=== PATIENT | female | born 1935 | race Caucasian/White ===

== ENCOUNTER 2020-07-31 09:04 | Day surgery (SDC) | payer MEDICARE, BC ==
[~2020-07-31] VITALS: Ht 160 cm; Wt 60.8 kg
[~2020-07-31 09:04] MED LIST: ATOR10 PO; CALCAVITDA PO; HYDR1TAB94 PO; INSUASPI; INSUASPI SC; INSULANPEN; INSULANPEN SC; LEVSOD100 PO; Neurontin300 MG PO; OMEPRAZOLE MAGN20 MG PO
--- NOTE | 2020-07-31 11:12 | NUR ---
Ambulatory in Day Surgery History, Chart, Medications and Allergies reviewed before start of procedure.Patient confirms NPO status and agrees with scheduled surgery. Patient states colon prep results clear.Lungs clear T/O to Auscultation.
--- NOTE | 2020-07-31 11:26 | NUR ---
07/31/20 1126 Rod Bahena History, Chart, Medications and Allergies reviewed before start of procedure. MONITOR INTACT WITH CONTINUOUS PULSE OXIMETRY AND INTERMITTENT BP. 3-LEAD EKG REVIEWED WITH PHYSICIAN PRIOR TO START OF PROCEDURE. O2 VIA N/C INTACT THROUGHOUT SEDATION/PROCEDURE. HURRICAINE SPRAY TO OROPHARYX. Bite Block Placed. PATIENT DETERMINED TO BE ASA APPROPRIATE FOR PROPOFOL SEDATION PRIOR TO START OF PROCEDURE BY DR. PADILLA.
--- NOTE | 2020-07-31 12:53 | NUR ---
Patient up to Ambulate independently. Gait steady. Discharge instructions reviewed with patient. Patient verbalizes understanding. Copy given to patient to take home. Discharged via wheelchair to private car for ride home WITH .
== END 2020-07-31 23:08 | disposition home or self-care (01) ==
LOC: ORSCMMR 09:04 → ORD 10:00 → ORSCMMR 10:00
PROVIDERS: Internal Medicine Gastroenterology
PROC: 0DB98ZX Excision of Duodenum, Via Natural or Artificial Opening Endoscopic, Diagnostic (ICD-10-PCS; principal; 2020-07-31 10:00)
PROC: 0DBL8ZX Excision of Transverse Colon, Via Natural or Artificial Opening Endoscopic, Diagnostic (ICD-10-PCS; principal; 2020-07-31 10:00)
PROC: 0DB68ZX Excision of Stomach, Via Natural or Artificial Opening Endoscopic, Diagnostic (ICD-10-PCS; principal; 2020-07-31 10:00)
DX: D46.4 Refractory anemia, unspecified (principal); D12.3 Benign neoplasm of transverse colon; K64.8 Other hemorrhoids; K57.30 Diverticulosis of large intestine without perforation or abscess without bleeding; K44.9 Diaphragmatic hernia without obstruction or gangrene; E10.21 Type 1 diabetes mellitus with diabetic nephropathy; E03.9 Hypothyroidism, unspecified; E78.00 Pure hypercholesterolemia, unspecified; I10 Essential (primary) hypertension; Z79.4 Long term (current) use of insulin; Z79.899 Other long term (current) drug therapy
CPT/HCPCS: 82947; 88305; 88342; A9270; J2704; J7120

== ENCOUNTER 2021-01-19 14:33 | Emergency (ER) | payer MEDICARE, BC ==
[~2021-01-19] VITALS: Ht 170.2 cm; Wt 59.0 kg
[2021-01-19] MEDS ORDERED: AMLODIPINE BESYL5 MG PO (15:19)
[2021-01-19] MEDS ORDERED: [UNRECOGNIZED DRUG - OTHER] (15:20)
[2021-01-19] MEDS ORDERED: LISINOPRIL 40 MG (15:21)
[2021-01-19] MEDS ORDERED: METFORMIN HCL500 M3 PO (15:22)
[2021-01-19 15:34] LABS: BASOPHILS PERCENT AUTO 1 % (0-2); EOSINOPHILS PERCENT AUTO 1 % (0-6); Hematocrit 38.5 % (33.0-51.0); Hemoglobin 11.8 g/dL (11.5-16.0); IMMATURE GRAN ABSOLUTE AUTO 0.02 K/mm3 (0.00-0.10); IMMATURE GRAN PERCENT AUTO 0 % (0-1); LYMPHOCYTES ABSOLUTE AUTO 1.34 K/mm3 (0.84-5.20); LYMPHOCYTES PERCENT AUTO 15 % (21-46); MONOCYTES ABSOLUTE AUTO 0.65 K/mm3 (0.16-1.47); MONOCYTES PERCENT AUTO 7 % (4-13); Mean Corpuscular HGB 25.4 pg (26.0-34.0); Mean Corpuscular HGB Conc 30.6 g/dL (31.5-36.5); Mean Corpuscular Volume 83 fL (80-100); Mean Platelet Volume 10.5 fL (9.1-12.4); NEUTROPHILS ABSOLUTE AUTO 6.57 K/mm3 (1.96-9.15); NEUTROPHILS PERCENT AUTO 75 % (41-73); Platelet Count 255 K/mm3 (150-400); RDW Coefficient Variation 17.2 % (11.7-14.2); RDW Standard Deviation 51.5 fL (35.1-46.3); Red Blood Cell Count 4.65 M/mm3 (3.80-5.20); White Blood Cell Count 8.78 K/mm3 (4.00-11.30)
[2021-01-19 16:04] LABS: Albumin, Blood 3.2 g/dL (3.4-5.0); Albumin/Globulin Ratio 0.8 (0.8-1.8); Bilirubin, Direct 0.1 mg/dL (0.0-0.3); Bilirubin, Indirect 0.4 mg/dL (0.1-0.7); Bilirubin, Total 0.5 mg/dL (0.1-1.0); Bun/Creatinine Ratio 36.4 (12.0-20.0); Calcium, Blood 9.3 mg/dL (8.5-10.1); Creatinine, Blood 1.21 mg/dL (0.40-1.00); Globulin, Blood 4.1 g/dL (2.2-4.0); Magnesium, Blood 2.3 mg/dL (1.6-2.4); Potassium, Blood 4.5 mmol/L (3.5-5.5); Total Protein, Blood 7.3 g/dL (6.4-8.2)
[2021-01-19 17:03] LABS: Free Thyroxine 1.42 ng/dL (0.70-1.60)
[2021-01-19 17:05] LABS: Triiodothyronine, Free 2.27 pg/mL (2.18-3.98)
[2021-01-19] MEDS ORDERED: ONDA4ODT MM (17:19)
== END 2021-01-19 18:00 | disposition home or self-care (01) ==
LOC: ER 14:33
PROVIDERS: Physician Assistant; Student in an Organized Health Care Education/Training Program
DX: R11.2 Nausea with vomiting, unspecified (principal); E86.0 Dehydration; T50.B95A Adverse effect of other viral vaccines, initial encounter; Z79.899 Other long term (current) drug therapy; Z79.84 Long term (current) use of oral hypoglycemic drugs; Z79.4 Long term (current) use of insulin; E11.9 Type 2 diabetes mellitus without complications; I10 Essential (primary) hypertension
CPT/HCPCS: 70450; 71045; 80048; 80076; 83735; 83880; 84439; 84443; 84481; 84484; 85025; 93005; 93010; 96374; 99285-25; J2405; J7030

== ENCOUNTER 2021-04-19 18:37 | Emergency (ER) | payer MEDICARE, BC ==
[~2021-04-19] VITALS: Ht 167.6 cm; Wt 54.4 kg
[~2021-04-19 18:37] MED LIST changes: +AMLODIPINE BESYL5 MG PO; +LISINOPRIL 40 MG; +METFORMIN HCL500 M3 PO; +ONDA4ODT MM; +[UNRECOGNIZED DRUG - OTHER]
[2021-04-20 00:23] LABS: Source, Urine Clean Catch
[2021-04-20 00:27] LABS: BASOPHILS ABSOLUTE AUTO 0.06 K/mm3 (0.00-0.23); BASOPHILS PERCENT AUTO 1 % (0-2); EOSINOPHILS ABSOLUTE AUTO 0.17 K/mm3 (0.00-0.68); EOSINOPHILS PERCENT AUTO 3 % (0-6); Hematocrit 33.7 % (33.0-51.0); Hemoglobin 10.4 g/dL (11.5-16.0); IMMATURE GRAN ABSOLUTE AUTO 0.01 K/mm3 (0.00-0.10); IMMATURE GRAN PERCENT AUTO 0 % (0-1); LYMPHOCYTES ABSOLUTE AUTO 1.65 K/mm3 (0.84-5.20); LYMPHOCYTES PERCENT AUTO 24 % (21-46); MONOCYTES ABSOLUTE AUTO 0.67 K/mm3 (0.16-1.47); MONOCYTES PERCENT AUTO 10 % (4-13); Mean Corpuscular HGB 25.8 pg (26.0-34.0); Mean Corpuscular HGB Conc 30.9 g/dL (31.5-36.5); Mean Corpuscular Volume 84 fL (80-100); Mean Platelet Volume 10.6 fL (9.1-12.4); NEUTROPHILS ABSOLUTE AUTO 4.34 K/mm3 (1.96-9.15); NEUTROPHILS PERCENT AUTO 63 % (41-73); Platelet Count 242 K/mm3 (150-400); RDW Coefficient Variation 17.9 % (11.7-14.2); RDW Standard Deviation 54.4 fL (35.1-46.3); Red Blood Cell Count 4.03 M/mm3 (3.80-5.20)
[2021-04-20 00:36] LABS: Appearance, Urine Hazy (Clear); Bilirubin, Urine Neg (Neg); Blood, Urine Neg (Neg); Color, Urine Yellow (P-Yellow); Glucose Qualitative, Urine 3+ (Neg); Ketones, Urine 3+ (Neg); Leukocyte Esterase, Urine 2+ (Neg); Nitrite, Urine Neg (Neg); Protein, Urine 2+ (Neg); Specific Gravity, Urine 1.025 (1.003-1.022); Urobilinogen, Urine NORM (Normal)
[2021-04-20 00:37] LABS: Amorphous Light (0-Heavy); Bacteria Few /hpf; Mucus Light (0-Heavy); Red Blood Cells, Urine Not Seen /hpf (0-2); Squamous Epithelial Cells Few /hpf (Few)
[2021-04-20 00:45] LABS: Alanine Aminotransfer (ALT/SGP 13 U/L (12-78); Albumin, Blood 3.2 g/dL (3.4-5.0); Albumin/Globulin Ratio 0.9 (0.8-1.8); Alk Phos 54 U/L (50-136); Anion Gap 15 mmol/L (6-16); Aspartate Aminotrans (AST/SGOT 16 U/L (12-37); Bilirubin, Total 0.3 mg/dL (0.1-1.0); Blood Urea Nitrogen 32 mg/dL (8-24); Bun/Creatinine Ratio 27.6 (12.0-20.0); CO2, Blood 15 mmol/L (21-32); Calcium, Blood 8.8 mg/dL (8.5-10.1); Chloride, Blood 104 mmol/L (98-108); Creatinine, Blood 1.16 mg/dL (0.40-1.00); Globulin, Blood 3.5 g/dL (2.2-4.0); Glomerular Filtration Rate 44 (60-); Glucose, Blood 310 mg/dL (70-99); Potassium, Blood 5.1 mmol/L (3.5-5.5); Sodium, Blood 134 mmol/L (136-145); Total Protein, Blood 6.7 g/dL (6.4-8.2); Troponin I <0.015 ng/mL (0.000-0.040)
[2021-04-20 01:24] LABS: Influenza A, PCR NEGATIVE (NEGATIVE); Influenza B, PCR NEGATIVE (NEGATIVE); Resp Syncytial Virus, PCR NEGATIVE (NEGATIVE); SARS-Cov-2 (COVID-19) PCR, MMC NEGATIVE (NEGATIVE)
[2021-04-20] MEDS ORDERED: ONDA4ODT MM (02:33)
== END 2021-04-20 04:47 | disposition home or self-care (01) ==
LOC: ER 18:37
PROVIDERS: Emergency Medicine
DX: E11.9 Type 2 diabetes mellitus without complications (principal); R11.2 Nausea with vomiting, unspecified; I10 Essential (primary) hypertension; Z79.4 Long term (current) use of insulin; Z79.899 Other long term (current) drug therapy
CPT/HCPCS: 0241U; 36415; 71045; 74176; 80053; 81001; 83690; 83880; 84484; 85025; 87077; 87086; 87186; 93005; 93010; 96374; 99284-25; A9270; J2405; J7030

== ENCOUNTER → 2021-04-30 | Outpatient (CLI) | payer MEDICARE, BC ==
[2021-04-30 14:31] LABS: BASOPHILS ABSOLUTE AUTO 0.02 K/mm3 (0.00-0.23); BASOPHILS PERCENT AUTO 1 % (0-2); EOSINOPHILS ABSOLUTE AUTO 0.04 K/mm3 (0.00-0.68); EOSINOPHILS PERCENT AUTO 1 % (0-6); Hematocrit 35.7 % (33.0-51.0); Hemoglobin 11.2 g/dL (11.5-16.0); IMMATURE GRAN ABSOLUTE AUTO 0.01 K/mm3 (0.00-0.10); IMMATURE GRAN PERCENT AUTO 0 % (0-1); LYMPHOCYTES ABSOLUTE AUTO 0.96 K/mm3 (0.84-5.20); LYMPHOCYTES PERCENT AUTO 24 % (21-46); MONOCYTES ABSOLUTE AUTO 0.52 K/mm3 (0.16-1.47); MONOCYTES PERCENT AUTO 13 % (4-13); Mean Corpuscular HGB Conc 31.4 g/dL (31.5-36.5); Mean Corpuscular Volume 83 fL (80-100); Mean Platelet Volume 11.3 fL (9.1-12.4); NEUTROPHILS ABSOLUTE AUTO 2.51 K/mm3 (1.96-9.15); NEUTROPHILS PERCENT AUTO 62 % (41-73); Platelet Count 171 K/mm3 (150-400); RDW Coefficient Variation 17.9 % (11.7-14.2); RDW Standard Deviation 54.4 fL (35.1-46.3); Red Blood Cell Count 4.31 M/mm3 (3.80-5.20); White Blood Cell Count 4.06 K/mm3 (4.00-11.30)
[2021-04-30 14:52] LABS: Albumin/Globulin Ratio 0.9 (0.8-1.8); Bilirubin, Total 0.2 mg/dL (0.1-1.0); Bun/Creatinine Ratio 27.9 (12.0-20.0); Calcium, Blood 8.6 mg/dL (8.5-10.1); Creatinine, Blood 1.36 mg/dL (0.40-1.00); Globulin, Blood 3.3 g/dL (2.2-4.0); Potassium, Blood 5.6 mmol/L (3.5-5.5); Total Protein, Blood 6.3 g/dL (6.4-8.2)
== END | disposition home or self-care (01) ==
LOC: LAB 14:28 → LAB SHORT 14:28
PROVIDERS: Physician Assistant Medical
DX: R53.83 Other fatigue (principal)
CPT/HCPCS: 80053; 85025

== ENCOUNTER 2021-05-10 10:53 | Emergency (ER) | payer MEDICARE, BC ==
[~2021-05-10] VITALS: Ht 170.2 cm; Wt 56.7 kg
[2021-05-10 12:00] LABS: Source, Urine Straight Cath
[2021-05-10 12:02] LABS: Bilirubin, Urine Neg (Neg); Blood, Urine Neg (Neg); Glucose Qualitative, Urine 4+ (Neg); Ketones, Urine 3+ (Neg); Leukocyte Esterase, Urine Neg (Neg); Nitrite, Urine Neg (Neg); Protein, Urine 2+ (Neg); Specific Gravity, Urine 1.015 (1.003-1.022); Urobilinogen, Urine NORM (Normal)
[2021-05-10 12:03] LABS: BASOPHILS ABSOLUTE AUTO 0.04 K/mm3 (0.00-0.23); BASOPHILS PERCENT AUTO 1 % (0-2); EOSINOPHILS ABSOLUTE AUTO 0.05 K/mm3 (0.00-0.68); EOSINOPHILS PERCENT AUTO 1 % (0-6); Hematocrit 39.5 % (33.0-51.0); Hemoglobin 12.1 g/dL (11.5-16.0); IMMATURE GRAN ABSOLUTE AUTO 0.02 K/mm3 (0.00-0.10); IMMATURE GRAN PERCENT AUTO 0 % (0-1); LYMPHOCYTES ABSOLUTE AUTO 0.97 K/mm3 (0.84-5.20); LYMPHOCYTES PERCENT AUTO 12 % (21-46); MONOCYTES ABSOLUTE AUTO 0.36 K/mm3 (0.16-1.47); MONOCYTES PERCENT AUTO 4 % (4-13); Mean Corpuscular HGB 25.9 pg (26.0-34.0); Mean Corpuscular HGB Conc 30.6 g/dL (31.5-36.5); Mean Corpuscular Volume 85 fL (80-100); Mean Platelet Volume 11.7 fL (9.1-12.4); NEUTROPHILS ABSOLUTE AUTO 6.97 K/mm3 (1.96-9.15); NEUTROPHILS PERCENT AUTO 83 % (41-73); Platelet Count 296 K/mm3 (150-400); RDW Coefficient Variation 18.1 % (11.7-14.2); RDW Standard Deviation 56.1 fL (35.1-46.3); Red Blood Cell Count 4.67 M/mm3 (3.80-5.20); White Blood Cell Count 8.41 K/mm3 (4.00-11.30)
[2021-05-10 12:10] LABS: Appearance, Urine Hazy (Clear); Color, Urine Pale Yellow (P-Yellow)
[2021-05-10 12:11] LABS: Bacteria Rare /hpf; Red Blood Cells, Urine 0-2 /hpf (0-2); Squamous Epithelial Cells Rare /hpf (Few); White Blood Cells, Urine 0-2 /hpf (0-5)
[2021-05-10 12:21] LABS: Albumin/Globulin Ratio 0.8 (0.8-1.8); Bilirubin, Total 0.5 mg/dL (0.1-1.0); Bun/Creatinine Ratio 29.4 (12.0-20.0); Calcium, Blood 9.2 mg/dL (8.5-10.1); Creatinine, Blood 1.09 mg/dL (0.40-1.00); Globulin, Blood 3.9 g/dL (2.2-4.0); Potassium, Blood 5.8 mmol/L (3.5-5.5); Total Protein, Blood 6.9 g/dL (6.4-8.2)
[2021-05-10 12:50] LABS: Influenza B, PCR NEGATIVE (NEGATIVE); Resp Syncytial Virus, PCR NEGATIVE (NEGATIVE); SARS-Cov-2 (COVID-19) PCR, MMC NEGATIVE (NEGATIVE)
[2021-05-10 13:13] LABS: Influenza A, PCR POSITIVE (NEGATIVE)
[2021-05-10] MEDS ORDERED: AMOCLA875 PO (13:38)
[2021-05-10] MEDS ORDERED: ONDA4ODT MM (13:38)
[2021-05-10] MEDS ORDERED: Flagyl500 MG PO (13:38)
== END 2021-05-10 14:20 | disposition home or self-care (01) ==
LOC: ER 10:53
PROVIDERS: Emergency Medicine
DX: J11.1 Influenza due to unidentified influenza virus with other respiratory manifestations (principal); K52.9 Noninfective gastroenteritis and colitis, unspecified; E11.9 Type 2 diabetes mellitus without complications; I10 Essential (primary) hypertension; Z79.2 Long term (current) use of antibiotics; Z79.899 Other long term (current) drug therapy
CPT/HCPCS: 0241U; 51701; 71045; 74177; 80053; 81001; 83690; 85025; 96374-59; 99284-25; A9270; J2405; J7030; Q9967

== ENCOUNTER → 2021-06-18 | Outpatient (CLI) | payer MEDICARE, BC ==
[~2021-06-18] MED LIST changes: +AMOCLA875 PO; +Flagyl500 MG PO
[2021-06-18 15:41] LABS: Bilirubin, Urine Neg (Neg); Blood, Urine Neg (Neg); Glucose Qualitative, Urine 3+ (Neg); Ketones, Urine Neg (Neg); Leukocyte Esterase, Urine Neg (Neg); Nitrite, Urine Neg (Neg); Protein, Urine 2+ (Neg); Specific Gravity, Urine 1.015 (1.003-1.022); Urobilinogen, Urine NORM (Normal)
[2021-06-18 15:58] LABS: Appearance, Urine Clear (Clear); Color, Urine Pale Yellow (P-Yellow)
[2021-06-18 15:59] LABS: Amorphous Light (0-Heavy); Bacteria Rare /hpf; Granular Casts 0-2 /lpf (0); Hyaline Casts 0-2 /lpf (0-2); Mucus Light (0-Heavy); Red Blood Cells, Urine 0-2 /hpf (0-2); Squamous Epithelial Cells Few /hpf (Few); White Blood Cells, Urine 0-2 /hpf (0-5)
== END | disposition home or self-care (01) ==
LOC: LAB SHORT 14:20
PROVIDERS: Family Medicine
DX: R30.0 Dysuria (principal)
CPT/HCPCS: 81001; 87086

== ENCOUNTER → 2021-07-09 | Outpatient (CLI) | payer MEDICARE, BC | END | disposition home or self-care (01) | LOC: LAB SHORT 12:56 | DX: Z09 Encounter for follow-up examination after completed treatment for conditions other than malignant neoplasm (principal); Z86.14 Personal history of Methicillin resistant Staphylococcus aureus infection | CPT/HCPCS: 87070 ==

== ENCOUNTER → 2022-02-25 | Outpatient (CLI) | payer MEDICARE, BC ==
[2022-02-25 11:50] LABS: Source, Urine Clean Catch
[2022-02-25 15:33] LABS: Bilirubin, Urine Neg (Neg); Blood, Urine 1+ (Neg); Glucose Qualitative, Urine 2+ (Neg); Ketones, Urine Neg (Neg); Leukocyte Esterase, Urine 3+ (Neg); Nitrite, Urine Neg (Neg); Protein, Urine 2+ (Neg); Urobilinogen, Urine NORM (Normal)
[2022-02-25 15:53] LABS: Appearance, Urine Hazy (Clear); Color, Urine Pale Yellow (P-Yellow)
[2022-02-25 15:55] LABS: Bacteria Mod /hpf; Red Blood Cells, Urine 0-2 /hpf (0-2); Squamous Epithelial Cells Few /hpf (Few); Transitional Epithelial Cells Rare /hpf (0-Rare)
== END | disposition home or self-care (01) ==
LOC: LAB SHORT 11:15 → LAB 11:15
PROVIDERS: Family Medicine
DX: E11.9 Type 2 diabetes mellitus without complications (principal)
CPT/HCPCS: 81001; 87086

== ENCOUNTER → 2022-05-05 | Outpatient (CLI) | payer MEDICARE, BC ==
[2022-05-05 18:23] LABS: Alanine Aminotransfer (ALT/SGP 16 U/L (12-78); Albumin, Blood 3.3 g/dL (3.4-5.0); Albumin/Globulin Ratio 0.9 (0.8-1.8); Alk Phos 50 U/L (50-136); Anion Gap 8 mmol/L (6-16); Aspartate Aminotrans (AST/SGOT 13 U/L (12-37); Bilirubin, Total 0.3 mg/dL (0.1-1.0); Blood Urea Nitrogen 41 mg/dL (8-24); Bun/Creatinine Ratio 49.3 (12.0-20.0); CHOL/HDL RATIO 2.3; CO2, Blood 23 mmol/L (21-32); Calcium, Blood 9.5 mg/dL (8.5-10.1); Chloride, Blood 109 mmol/L (98-108); Cholesterol 198 mg/dL (50-200); Creatinine, Blood 0.83 mg/dL (0.40-1.00); Globulin, Blood 3.7 g/dL (2.2-4.0); Glomerular Filtration Rate 68 (60-); Glucose, Blood 231 mg/dL (70-99); HDL Cholesterol 87 mg/dL (>39); LDL/HDL RATIO 1.1; Low Density Lipoprotein Chol 99 mg/dL (0-110); Potassium, Blood 4.8 mmol/L (3.5-5.5); Sodium, Blood 140 mmol/L (136-145); Triglycerides 60 mg/dL (30-160); Very Low Density Lipoprot Chol 12 mg/dL (6-32)
== END | disposition home or self-care (01) ==
LOC: LAB SHORT 12:20
PROVIDERS: Family Medicine
DX: E03.9 Hypothyroidism, unspecified (principal); E78.5 Hyperlipidemia, unspecified; E10.42 Type 1 diabetes mellitus with diabetic polyneuropathy; E10.319 Type 1 diabetes mellitus with unspecified diabetic retinopathy without macular edema; E10.8 Type 1 diabetes mellitus with unspecified complications; Z79.4 Long term (current) use of insulin
CPT/HCPCS: 80053; 80061; 82043; 84443

== ENCOUNTER 2024-03-04 23:07 | Inpatient (IN) | payer MEDICARE ==
[~2024-03-04] VITALS: Ht 170.2 cm; Wt 54.7 kg
[~2024-03-04 23:07] MED LIST changes: -CALCAVITDA PO; +CALCIUM 500 MG1 EAC2 PO; +OMEP20ER PO; -OMEPRAZOLE MAGN20 MG PO
[2024-03-04] MEDS ORDERED: Lactated Ringer's 1,000 ML IV SCH (23:15)
[2024-03-04 23:59] LABS: BASOPHILS ABSOLUTE AUTO 0.06 K/mm3 (0.00-0.23); BASOPHILS PERCENT AUTO 1 % (0-2); EOSINOPHILS ABSOLUTE AUTO 0.05 K/mm3 (0.00-0.68); EOSINOPHILS PERCENT AUTO 1 % (0-6); Hematocrit 38.1 % (33.0-51.0); Hemoglobin 11.6 g/dL (11.5-16.0); IMMATURE GRAN ABSOLUTE AUTO 0.03 K/mm3 (0.00-0.10); IMMATURE GRAN PERCENT AUTO 0 % (0-1); LYMPHOCYTES ABSOLUTE AUTO 0.89 K/mm3 (0.84-5.20); LYMPHOCYTES PERCENT AUTO 11 % (21-46); MONOCYTES PERCENT AUTO 5 % (4-13); Mean Corpuscular HGB 28.9 pg (26.0-34.0); Mean Corpuscular HGB Conc 30.4 g/dL (31.5-36.5); Mean Corpuscular Volume 95 fL (80-100); Mean Platelet Volume 10.9 fL (9.1-12.4); NEUTROPHILS PERCENT AUTO 82 % (41-73); Platelet Count 302 K/mm3 (150-400); RDW Coefficient Variation 21.5 % (11.7-14.2); RDW Standard Deviation 75.2 fL (35.1-46.3); Red Blood Cell Count 4.02 M/mm3 (3.80-5.20); White Blood Cell Count 8.03 K/mm3 (4.00-11.30)
[2024-03-05] VITALS (29 sets, daily range): BP systolic 89–150; BP diastolic 45–63
[2024-03-05 00:20] LABS: Base Excess Venous -25.5 mmol/L; Bicarbonate Venous 8.1 mmol/L (24.0-30.0); PCO2 Venous 18.6 mmHg (38-42); pH Blood Venous 7.04 (7.34-7.37)
[2024-03-05 00:23] LABS: Magnesium, Blood 2.4 mg/dL (1.6-2.4)
[2024-03-05 00:38] LABS: Influenza A, PCR NEGATIVE (NEGATIVE); Influenza B, PCR NEGATIVE (NEGATIVE); Resp Syncytial Virus, PCR NEGATIVE (NEGATIVE); SARS-Cov-2 (COVID-19) PCR, MMC NEGATIVE (NEGATIVE)
[2024-03-05 00:58] LABS: Albumin/Globulin Ratio 0.7 (0.8-1.8); Beta-hydroxybutyrate 113.5 mg/dL (0.2-2.8); Bilirubin, Total 0.4 mg/dL (0.1-1.0); Calcium, Blood 9.2 mg/dL (8.5-10.1); Creatinine, Blood 1.43 mg/dL (0.40-1.00); Globulin, Blood 4.1 g/dL (2.2-4.0); Potassium, Blood 5.2 mmol/L (3.5-5.5); Total Protein, Blood 7.1 g/dL (6.4-8.2)
[2024-03-05] MEDS ORDERED: Insulin Human Regular 100 UNIT in NS 100 ML IV SCH ×2 (01:05→01:55)
[2024-03-05] MEDS ORDERED: NS 1,000 ML IV SCH (01:30)
[2024-03-05] MEDS ORDERED: Ondansetron HCl 2 MG / ML 2ML Vial IV PRN (01:35)
[2024-03-05] MEDS ORDERED: Dextrose 50% 50 ML Vial IV PRN (01:40)
[2024-03-05] MEDS ORDERED: FLU VACC TS2024-25(6MOS UP)/PF 45 MCG/0.5 ML SYRINGE IM ONE (01:40)
[2024-03-05] MEDS ORDERED: Lactated Ringer's 1,000 ML IV SCH (01:40)
[2024-03-05 02:59] LABS: Source, Urine Clean Catch
[2024-03-05 03:20] LABS: Bilirubin, Urine Neg (Neg); Blood, Urine Neg (Neg); Glucose Qualitative, Urine 4+ (Neg); Ketones, Urine 3+ (Neg); Leukocyte Esterase, Urine 1+ (Neg); Nitrite, Urine Neg (Neg); Protein, Urine 1+ (Neg); Urobilinogen, Urine NORM (Normal)
[2024-03-05 03:29] LABS: Appearance, Urine Clear (Clear); Color, Urine Yellow (P-Yellow)
[2024-03-05 03:30] LABS: Bacteria Mod /hpf; Red Blood Cells, Urine 0-2 /hpf (0-2); Squamous Epithelial Cells Few /hpf (Few)
[2024-03-05 04:14] LABS: Base Excess Venous -16.9 mmol/L; Bicarbonate Venous 12.9 mmol/L (24.0-30.0); PCO2 Venous 18.7 mmHg (38-42); pH Blood Venous 7.31 (7.34-7.37)
[2024-03-05] MEDS ORDERED: D5W-1/2NS 1,000 ML IV SCH (05:20)
[2024-03-05 05:26] LABS: Bun/Creatinine Ratio 28.6 (12.0-20.0); Creatinine, Blood 1.33 mg/dL (0.40-1.00); Magnesium, Blood 2.2 mg/dL (1.6-2.4); Phosphorus, Blood 3.4 mg/dL (2.5-4.9); Potassium, Blood 4.9 mmol/L (3.5-5.5)
[2024-03-05] MEDS ORDERED: Levothyroxine Sodium 0.112 MG Tab PO SCH (06:00)
[2024-03-05] MEDS ORDERED: Omeprazole 20 MG CapCR PO SCH (06:00)
--- NOTE | 2024-03-05 06:14 | NUR ---
SHIFT SUMMARY PATIENT TO ICU 15 FROM ER AT APPROX 0310. PATIENT ALERT AND ORIENTED X3, FORGETFULL AND UNABLE TO RECALL FULL HISTORY. SP02 98% ON 2L NC WHILE SLEEPING. HR SR FIRST DEGREE BLOCK 80s, BP STABLE, DENIES CP/PRESSURE. INSULIN DRIP INFUSING. D5 1/2 [address] IN PL[address]. PATIENT ABLE TO REPOSITON SELF IN BED. CALL LIGHT IN REACH
[2024-03-05] MEDS ORDERED: AmLODIPine Besylate 5 MG Tab PO SCH (09:00)
[2024-03-05] MEDS ORDERED: Enoxaparin 30 MG/0.3 ML SYR SC SCH (09:00)
[2024-03-05] MEDS ORDERED: Atorvastatin 10 MG Tab PO SCH (09:00)
[2024-03-05 09:16] LABS: Calcium, Blood 8.6 mg/dL (8.5-10.1); Creatinine, Blood 1.2 mg/dL (0.40-1.00); Potassium, Blood 4.2 mmol/L (3.5-5.5)
[2024-03-05] MEDS ORDERED: Acetaminophen 325 MG TABLET PO PRN (10:20)
[2024-03-05 12:31] LABS: Bun/Creatinine Ratio 27.8 (12.0-20.0); Calcium, Blood 8.2 mg/dL (8.5-10.1); Creatinine, Blood 1.15 mg/dL (0.40-1.00); Potassium, Blood 4.5 mmol/L (3.5-5.5)
[2024-03-05] MEDS ORDERED: Insulin Glargine-Yfgn 100 Unit/mL 3 ML SYR SC SCH (15:00)
[2024-03-05] MEDS ORDERED: Dextrose 50% 50 ML Vial IV ONE ×2 (17:15→23:55)
--- NOTE | 2024-03-05 18:34 | NUR ---
SHIFT SUMMARY: NEURO: A&OX4. FOLLOWS COMMANDS AND MAKES NEEDS KNOWN TO STAFF. VEHICLE OPERATOR TECHNICIAN STRENGH EQUAL AND IS ABLE TO MOVE ALL EXTEMITIES. NO ACUTE NEURO SYMPTOMS. CARDIAC: NORMAL SINUS RHYTHM THROUGHOUT SHIFT. HAS DENIED ANY CP, PRESSURE, TIGHTNESS OR SOB. RESP: PT WAS ON 2L NC AT BEGINING OF SHIFT AND IS NOW ON RS. LUNG SOUNDS CLEAR THROUGHOUT AND DENIES ANY SOB. GI/: PT DID NOT HAVE A BOWEL MOVEMENT BUT WAS ABLE TO TRANSFER TO THE TOILET TO VOID. LINES: PT HAS ACCESS TO RAC AND L WRIST. BOTH LINES PATENT. PT WAS TRANSITIONED OFF OF INSULIN DRIP AT 1550 TODAY. PTS BLOOD PRESSURE WAS 79 PRIOR TO DINNER. BLOOD SUAGR WAS RECHECKED AFTER DINNER AND [id number]. PT RECIEVED HALF AN AMP OF D50 PER DR CUMMINGS. PT WAS HYPOTENSIVE WITH A BP OD 90/41 (56) WHEN BLOOD SUGAR WAS TAKEN BUT IMPROVED TO 131/58 AFTER WAKING UP TO EAT DINNER. PT WAS NOT SYMPTOMATIC WITH BLOOD PRESSURE. PT CHEKO SAW PT TODAY AND WANTS TO RESTART TPN ON PT. PER PHARMACY TPN DRIP NEEDS TO BE MANAGED BY [facility] AND IF THEY ARE NOT HERE TOMORROW THEN GI DR NEEDS TO MANAGE DRIP. SEE NURSE NOTIFY. PT WAS DOWN GRADED TO PCU STATUS. NO NO OTHER SIGNIFICANT EVENTS HAPPENED DURING THIS SHIFT. WILL CONTINUE TO CARE FOR PT TILL END OF SHIFT.
--- NOTE | 2024-03-05 18:48 | NUR ---
NEURO: A&OX4. FOLLOWS COMMANDS AND MAKES NEEDS KNOWN TO STAFF. HUMAN SERVICES SUPERVISOR STRENGH EQUAL AND IS ABLE TO MOVE ALL EXTEMITIES. NO ACUTE NEURO SYMPTOMS. CARDIAC: NORMAL SINUS RHYTHM THROUGHOUT SHIFT. HAS DENIED ANY CP, PRESSURE, TIGHTNESS OR SOB. RESP: PT WAS ON 2L NC AT BEGINING OF SHIFT AND IS NOW ON RS. LUNG SOUNDS CLEAR THROUGHOUT AND DENIES ANY SOB. GI/: PT DID NOT HAVE A BOWEL MOVEMENT BUT WAS ABLE TO TRANSFER TO THE TOILET TO VOID. LINES: PT HAS ACCESS TO RAC AND L WRIST. BOTH LINES PATENT. PT WAS TRANSITIONED OFF OF INSULIN DRIP AT 1550 TODAY. PTS BLOOD PRESSURE WAS 79 PRIOR TO DINNER. BLOOD SUAGR WAS RECHECKED AFTER DINNER AND [id number]. PT RECIEVED HALF AN AMP OF D50 PER DR CUMMINGS. PT WAS HYPOTENSIVE WITH A BP OD 90/41 (56) WHEN BLOOD SUGAR WAS TAKEN BUT IMPROVED TO 131/58 AFTER WAKING UP TO EAT DINNER. PT WAS NOT SYMPTOMATIC WITH BLOOD PRESSURE. PT WAS DOWN GRADED GRADED TO PCU STATUS. NO NO OTHER SIGNIFICANT EVENTS HAPPENED DURING THIS SHIFT. WILL CONTINUE TO CARE
[2024-03-05] MEDS ORDERED: Lactated Ringer's 1,000 ML IV ONE (19:40)
[2024-03-05] MEDS ORDERED: Gabapentin 300 MG Cap PO SCH (21:00)
--- NOTE | 2024-03-05 21:00 | NUR ---
ASSUMED CARE AT 1900 PATIENT IS ALERT AND ORIENTED X2-3, HX DEMENTIA. SP02 96% ON RA, DENIES SOB. HR SR 70s WITH PVCs, BP HYPOTENSIVE AT START OF SHIFT, CALLED HOSPITALIST AND 1L LR BOLUS GIVEN, BP NOW WITH MAP >65. BLOOD GLUCOSE LOW DURING THE DAY, PATIENT ABLE TO DRINK SOME JUICE TONIGHT. REPOSITIONS SELF IN BED. CALL LIGHT IN REACH
[2024-03-06] VITALS (39 sets, daily range): BP systolic 76–170; BP diastolic 40–112
[2024-03-06] MEDS ORDERED: D5W-1/2NS 1,000 ML IV SCH (01:00)
[2024-03-06 01:57] LABS: Bun/Creatinine Ratio 26.4 (12.0-20.0); Calcium, Blood 7.7 mg/dL (8.5-10.1); Creatinine, Blood 1.06 mg/dL (0.40-1.00); Magnesium, Blood 1.9 mg/dL (1.6-2.4); Phosphorus, Blood 2.6 mg/dL (2.5-4.9); Potassium, Blood 4.1 mmol/L (3.5-5.5)
--- NOTE | 2024-03-06 05:46 | NUR ---
SHIFT SUMMARY PATIENT REMAINS ALERT AND ORIENTED X2-3. SP02 97% ON RA, DENIES SOB. HR SR WITH FIRST DEGREE BLOCK AND PVCs. BP SOFT AT TIMES, FLUID BOLUS DONE AND D5 1/2 NS INF STARTED, BP IMPROVED. CBG AT APPROX 0000 WAS 32, HALF AMP D50 GIVEN AND THE D5 1/2 NS INF STARTED, BLOOD GLUCOSE NOW 120s, RATE ON FLUIDS DROPPED TO 100 MLS/HR. PATIENT ABLE TO REPOSITION SELF IN BED. USED BEDPAN THIS AM. CALL LIGHT IN REACH
--- NOTE | 2024-03-06 07:15 | NUR ---
Recieved in room report from Noc RN. Patient resting and aroused during report and fell back to sleep. She called shortly after and needed to urinatew and assisted her to bedside cammode and was a moderate lift. she was able to clean self with minimal assist and moderate lift back to bed. She is able to position self for comfort in bed. When back in bed systolic in low 90's, asymptomatic. She is on Ra and stats 97%. She has 18ga powerglide to HELENA and is infusing D5 1/2 NS at 100 ml/hr. She is Q4hr CBNG and next one at 0800. She states she has some concerns about going home and able to be taking care and needs assistance as unable to lift her. Coccyx dressing in place abd are blanching. She wanted to back to sleep.
[2024-03-06] MEDS ORDERED: Insulin Glargine-Yfgn 100 Unit/mL 3 ML SYR SC SCH (09:00)
[2024-03-06] MEDS ORDERED: Enoxaparin 40 MG/0.4 ML SYR SC SCH (09:00)
--- NOTE | 2024-03-06 11:11 | NUR ---
Patient has been resting. Dr Hollins has been by and made her med status no tele. We stopped D5 1/2 NS, reducded her glargine, last CBG 156. She tolerated her am meds. She denies any current needs. Spouse came by earlier and has now gone home. She continues to self position for comfort.
--- NOTE | 2024-03-06 11:57 | NUR ---
Patient up with one assist to bedside cammode, 350 urine out. Assisted back to bed. Set up for lunch and is independnent with eating. CBG [address] Hollins. Patient has no current concerns,
--- NOTE | 2024-03-06 13:30 | NUR ---
Patient up again with one assist top bedside cammode and then back to bed. She is a moderate transfer and is unable to bear weight for more than a minute at best. She was started on low SS humalog for 223 CBG post 5 unit Glargine. Patient just has been resting most of shift and awakening for care and meals. No significant changes with patient.
[2024-03-06] MEDS ORDERED: CefTRIAXone Sodium 1,000 MG in NS 100 ML IV SCH (14:00)
--- NOTE | 2024-03-06 15:16 | NUR ---
Gave report to [facility] floor room 341.Abx given and will transfer to floor. Sent chart and insulin pens with patient.
[2024-03-06] MEDS ORDERED: Insulin Human Lispro 100 Units/ML 3ML Syringe SC SCH (16:30)
--- NOTE | 2024-03-06 18:08 | NUR ---
PATIENT TRANSFERRED FROM ICU THIS AFTERNOON. DINNER BLOOD SUGAR WAS 201, 2 UNITS INSULIN GIVEN PER LOW SLIDING SCALE. ALERT AND ORIENTED X3-4, CAN GET CONFUSED WITH DATE, PLEASANT AND COOPERATIVE WITH CARE. 1-2 PERSON ASSIST TO BSC D/T WEAKNESS. PT VOMITED X1, ZOFRAN GIVEN WITH GOOD EFFECT. VITALS STABLE, ROOM AIR, NON-TELE. PT EXPRESSES WORRY ABOUT HER WEAKNESS AND HER SPOUSE UNABLE TO CARE FOR HER AT HOME, RN PROVIDED REASSURANCE. PT ORIENTED TO ROOM, INSTRUCTED TRACER CLERK LIGHT, IN REACH, BED IN LOW LOCKED POSITION.
[2024-03-06] MEDS ORDERED: BASAGLAR K100 UNIT/8 SC (21:27)
[2024-03-06] MEDS ORDERED: NOVOLOG FL100 UNIT/3 SC (21:46)
[2024-03-06] MEDS ORDERED: MECL12.5 PO (21:47)
--- NOTE | 2024-03-07 03:50 | NUR ---
VISUAL PRESENTATION MANAGER SUMMARY VSS. ALERT AND ORIENTED. DENIED DISTRESS WHEN ASKED. JOKED WITH NURSE AT HS. POWERGLIDE AND IV FLUSHED. ACCUCHECK AT HS WAS 248, DID NOT REQUIRE INSULIN COVERAGE. SEE MAR AND BLOOD SUGAR NOTES IN CHART. HOB ELEVATED FOR COMFORT IN BREATHING. ABLE TO REPOSITION SELF IN BED FOR COMFORT AND SKIN MAINTENANCE. REQUESSTED AND RECEIVED "WARM" BLANKETS. HAS BEEN RESTING QUIETLY WITH OCCASIONAL INTERRUPTIONS - SUCH COUGHING, BUT VOICED WAS OK WHEN NURSE CHECKED HER. CALL LIGHT IN REACH, RAILS UP X 2 AND BED IN LOW POSITION FOR SAFETY. WILL CONTINUE TO MONITOR.
[2024-03-07 04:53] VITALS: BP 118/61
[2024-03-07 06:07] LABS: BASOPHILS ABSOLUTE AUTO 0.04 K/mm3 (0.00-0.23); BASOPHILS PERCENT AUTO 1 % (0-2); EOSINOPHILS ABSOLUTE AUTO 0.25 K/mm3 (0.00-0.68); EOSINOPHILS PERCENT AUTO 5 % (0-6); Hematocrit 29.5 % (33.0-51.0); Hemoglobin 9.7 g/dL (11.5-16.0); IMMATURE GRAN ABSOLUTE AUTO 0.01 K/mm3 (0.00-0.10); IMMATURE GRAN PERCENT AUTO 0 % (0-1); LYMPHOCYTES PERCENT AUTO 29 % (21-46); MONOCYTES ABSOLUTE AUTO 0.57 K/mm3 (0.16-1.47); MONOCYTES PERCENT AUTO 11 % (4-13); Mean Corpuscular HGB Conc 32.9 g/dL (31.5-36.5); Mean Platelet Volume 11.1 fL (9.1-12.4); NEUTROPHILS ABSOLUTE AUTO 2.76 K/mm3 (1.96-9.15); NEUTROPHILS PERCENT AUTO 54 % (41-73); Platelet Count 198 K/mm3 (150-400); RDW Coefficient Variation 21.1 % (11.7-14.2); Red Blood Cell Count 3.34 M/mm3 (3.80-5.20); White Blood Cell Count 5.13 K/mm3 (4.00-11.30)
[2024-03-07 06:18] LABS: Mean Corpuscular Volume 88 fL (80-100)
[2024-03-07 06:44] LABS: Albumin, Blood 2.1 g/dL (3.4-5.0); Albumin/Globulin Ratio 0.6 (0.8-1.8); Bilirubin, Total 0.2 mg/dL (0.1-1.0); Bun/Creatinine Ratio 26.6 (12.0-20.0); Calcium, Blood 8.5 mg/dL (8.5-10.1); Creatinine, Blood 0.71 mg/dL (0.40-1.00); Globulin, Blood 3.3 g/dL (2.2-4.0); Potassium, Blood 5.2 mmol/L (3.5-5.5); Total Protein, Blood 5.4 g/dL (6.4-8.2)
[2024-03-07 07:16] VITALS: BP 122/63
[2024-03-07 16:18] VITALS: BP 150/69
--- NOTE | 2024-03-07 16:59 | NUR ---
SHIFT SUMMARY A&OX3-4, COOPERATIVE WITH CARE. LEGALLY BLIND. CONFUSED AT TIMES ABOUT SITUATION AND WHERE SHE IS. DENIES CP/PRESSURE, HEADACHE, DIZZINESS, OR SOB. ROOM AIR. NO TELE. NO ACUTE EVENTS THIS SHIFT. CURRENTLY RESTING IN BED. BED IN THE LOWEST POSITION. CALL LIGHT WITHIN REACH.
[2024-03-07 19:30] VITALS: BP 149/70
[2024-03-08 05:18] VITALS: BP 144/61
[2024-03-08 05:37] LABS: BASOPHILS ABSOLUTE AUTO 0.03 K/mm3 (0.00-0.23); BASOPHILS PERCENT AUTO 1 % (0-2); EOSINOPHILS ABSOLUTE AUTO 0.17 K/mm3 (0.00-0.68); EOSINOPHILS PERCENT AUTO 4 % (0-6); Hematocrit 28.4 % (33.0-51.0); Hemoglobin 9.4 g/dL (11.5-16.0); IMMATURE GRAN ABSOLUTE AUTO 0.01 K/mm3 (0.00-0.10); IMMATURE GRAN PERCENT AUTO 0 % (0-1); LYMPHOCYTES ABSOLUTE AUTO 1.32 K/mm3 (0.84-5.20); LYMPHOCYTES PERCENT AUTO 30 % (21-46); MONOCYTES ABSOLUTE AUTO 0.52 K/mm3 (0.16-1.47); MONOCYTES PERCENT AUTO 12 % (4-13); Mean Corpuscular HGB 29.2 pg (26.0-34.0); Mean Corpuscular HGB Conc 33.1 g/dL (31.5-36.5); Mean Corpuscular Volume 88 fL (80-100); Mean Platelet Volume 10.7 fL (9.1-12.4); NEUTROPHILS ABSOLUTE AUTO 2.33 K/mm3 (1.96-9.15); NEUTROPHILS PERCENT AUTO 53 % (41-73); Platelet Count 183 K/mm3 (150-400); RDW Coefficient Variation 20.8 % (11.7-14.2); RDW Standard Deviation 66.5 fL (35.1-46.3); Red Blood Cell Count 3.22 M/mm3 (3.80-5.20); White Blood Cell Count 4.38 K/mm3 (4.00-11.30)
[2024-03-08 06:08] LABS: Bun/Creatinine Ratio 23.2 (12.0-20.0); Calcium, Blood 8.5 mg/dL (8.5-10.1); Creatinine, Blood 0.82 mg/dL (0.40-1.00); Potassium, Blood 5.2 mmol/L (3.5-5.5)
--- NOTE | 2024-03-08 06:13 | NUR ---
Shift Summary No acute changes. Powerglide in HELENA is bothering her arm a little but still flushes without issues. Blood glucose was above 200 t/o the night. The hospitalist changed her Q4 blood sugar to Q6 as she has had a BG over 150 for over 40 hours. She slept well t/o most of the night. 1 assist to the BSC, pt is still very weak and has some difficulty pivot transfering.
[2024-03-08 07:27] VITALS: BP 132/62
[2024-03-08] MEDS ORDERED: NS 250 ML IV PRN (12:15)
[2024-03-08 13:51] LABS: CORONAVIRUS COVID-19 AG Negative (NEGATIVE); INFLUENZA A AG Negative (NEGATIVE); INFLUENZA B AG Negative (NEGATIVE)
--- NOTE | 2024-03-08 17:07 | NUR ---
DISCHARGE SUMMARY: PT TAKEN BY MEDICAL TRANSPORT TO [facility]. PT AOX4 AND IV'S DC'D. PT TOLERATED IT WELL WITH SOME TENDERNESS ON THE TEGEDERM SITES. PT BELONGINGS LEFT WITH PATIENT. SPOUSE NOTIFIED, SAID HE WOULD COME SEE HER THERE THIS EVENING AND BRING SOME OTHER THINGS. PT AOX4 WITH SLIGHT CONFUSION BUT NON IMPULSIVE AND PLEASANT. WILL CALL APPROPRIATELY. REPORT GIVEN TO [facility].
--- NOTE | 2024-03-08 17:45 | NUR ---
THIS PLASTERER SPOT HAS REVIEWED AND AGREES WITH ALL NOTES AND ASSESSMENTS BY MOISES WINTER.
== END 2024-03-08 16:27 | DRG 638 ==
LOC: ER 23:07 → ICUE 03-05 01:35 → ERHOLD 03-05 01:35 → MEDS 03-05 01:35 → ICUE 03-05 03:10 → MEDS 03-06 15:33
PROVIDERS: Emergency Medicine; Internal Medicine; ADMIT Student in an Organized Health Care Education/Training Program
DX: E10.10 Type 1 diabetes mellitus with ketoacidosis without coma (principal); N39.0 Urinary tract infection, site not specified; S22.31XA Fracture of one rib, right side, initial encounter for closed fracture; G89.29 Other chronic pain; E78.5 Hyperlipidemia, unspecified; I95.9 Hypotension, unspecified; E03.9 Hypothyroidism, unspecified; Z87.19 Personal history of other diseases of the digestive system; R29.6 Repeated falls; W18.30XA Fall on same level, unspecified, initial encounter; B96.20 Unspecified Escherichia coli [E. coli] as the cause of diseases classified elsewhere; I10 Essential (primary) hypertension; R53.1 Weakness; Z90.710 Acquired absence of both cervix and uterus; Z90.722 Acquired absence of ovaries, bilateral; Z98.890 Other specified postprocedural states; Z79.899 Other long term (current) drug therapy; Z79.891 Long term (current) use of opiate analgesic; Z79.4 Long term (current) use of insulin; Z79.84 Long term (current) use of oral hypoglycemic drugs; Z79.890 Hormone replacement therapy
CPT/HCPCS: 0241U; 36415; 70450; 71045; 80048; 80053; 81001; 82010; 82803; 82947; 83735; 83880; 83930; 84100; 84145; 84484; 85025; 87077; 87086; 87186; 87428-QW; 94760; 96360; 96361; 97161; 97165; 97530; 99285-25; A9270; C1751; J0696; J1650; J1815; J2405; J7030; J7042; J7050; J7120; J7799